=== PATIENT | female | born 1980 | race Caucasian/White ===

== ENCOUNTER 2017-01-08 19:29 | Emergency (ER) | payer OTHER ==
[2017-01-08 21:01] LABS: BASOPHIL % 0.6 % (0-2); PLATELET COUNT 284 x10^3mcL (130-400); RED CELL DISTRIBUTION WIDTH 13.8 % (11.5-14.5)
[2017-01-08 21:12] LABS: CHLORIDE SERUM 97 mmol/L (98-107); CREATININE SERUM 0.8 mg/dL (0.6-1.0); GFR1 > 60 mL/min; GLUCOSE SERUM 78 mg/dL (74-106); POTASSIUM SERUM 4.2 mmol/L (3.5-5.1); SODIUM SERUM 137 mmol/L (136-145)
[2017-01-08 21:24] LABS: ALBUMIN 4.5 g/dL (3.4-5.0); ALKALINE PHOSPHATASE 80 U/L (46-116); ALT/SGPT 76 U/L (14-59); AST/SGOT 87 U/L (15-37); BILIRUBIN TOTAL 0.44 mg/dL (0.20-1.00); FREE T4 0.82 ng/dL (0.76-1.46)
[2017-01-08 21:27] LABS: TOTAL PROTEIN, SERUM 9.4 g/dL (6.4-8.2)
[2017-01-08 23:03] LABS: UA SPECIFIC GRAVITY 1.025 (1.005-1.035); microscopic required? YES; urine erythrocyte 2+ (NEGATIVE)
[2017-01-08 23:10] LABS: AMPHETAMINE QUAL UR NONE DETECTED (NEG <=1000)
[2017-01-09 06:37] VITALS: BP 125/78
== END 2017-01-09 06:37 | disposition short-term general hospital (02) ==
LOC: ED 19:29
PROVIDERS: Emergency Medicine
DX: R07.89 Other chest pain (principal); F10.239 Alcohol dependence with withdrawal, unspecified; E87.2 Acidosis; Z88.6 Allergy status to analgesic agent; Z88.8 Allergy status to other drugs, medicaments and biological substances
CPT/HCPCS: 84439; 85378; G0480; J7030; Q9967